=== PATIENT | male | born 1995 | race Caucasian/White ===

== ENCOUNTER 2016-12-01 21:34 | Emergency (ER) | payer SELFPAY ==
--- NOTE | ~2016-12-01 | CR63 ---
[facility]. [facility] A Service of [facility] & [facility] / [facility] RADIOLOGY TEXT RESULTS PATIENT: OMAR MARTIN LOCATION: SED : 95 UNIT #: [id number] AGE: [address]: Sally Corbin APRN SEX: M ORDER DR: [id number] [place] [id number] E MR#: [id number] Acc #: [id number] NAME: OMAR MARTIN : 1995 SEX: M STUDY DATE/TIME: 12/01/2016 23:52 UNIT: SED ROOM: STUDY DESCRIPTION: CR Chest 2 View Attending Physician: Sally Corbin A.P.R.N. Ordering Physician: Sally Corbin A.P.R.N. Primary Care Physician: No Primary Care Physician MEDICAL IMAGING REPORT This report is preliminary unless electronic signature is present. EXAM 2-view chest INDICATIONS Chest pain fatigue for 1 week. FINDINGS PA and lateral views of the chest without comparison. Heart and mediastinal contours normal. Lungs are clear. IMPRESSION No acute findings. Dictated by... Jone Davila M.D. THIS IS AN ELECTRONICALLY VERIFIED REPORT Jone Davila M.D. at 12/02/2016 11:10 PM RPGarrett/matty TD: 12/02/2016 05:02 JOB #: [id number] MEDICAL IMAGING REPORT Page 1 of 1
--- NOTE | ~2016-12-01 | EKG ---
PATIENT: OMAR MARTIN UNIT #: [id number] Ventricular Rate: 60 BPM Atrial Rate: 60 BPM P-R Interval: 134 ms QRS Duration: 94 ms Q-T Interval: 396 ms QTC Calculation(Bezet): 396 ms P [place]: 24 degrees Calculated R [place]: 33 degrees Calculated T [place]: 42 degrees Diagnosis Line: Normal sinus rhythm with sinus arrhythmia Diagnosis Line: Normal ECG Diagnosis Line: No previous ECGs available Diagnosis Line: Confirmed by TRAVIS MURDOCK MD ([id number]) on Diagnosis Line: 12/06/2016 8:50:22 AM INTERPRETING MD: COLLETTE AYERS
[2016-12-01] MEDS ORDERED: NO MEDICATIONS (21:55)
[2016-12-01 22:51] LABS: URINE SOURCE CLEAN CATCH
[2016-12-01 22:55] LABS: URINE APPEARANCE CLEAR; URINE BILIRUBIN NEG (NEG); URINE BLOOD NEG (NEG); URINE COLOR YELLOW; URINE GLUCOSE NEG (NORM); URINE KETONE NEG (NEG); URINE LEUKOCYTE ESTERASE NEG (NEG); URINE NITRATE NEG (NEG); URINE PROTEIN NEG (NEG); URINE UROBILINOGEN 0.2 MG/DL (NORM)
[2016-12-01 22:56] LABS: BASOPHIL% 0.5 % (0-2.5); EOSINOPHIL# 0.1 X10e3 (0-0.7); EOSINOPHIL% 1.1 % (0.0-7.0); HEMATOCRIT 47.1 % (38.0-50.0); HEMOGLOBIN 16.1 gm/dL (13.0-16.0); LYMPHOCYTE# 2.6 X10e3 (1.0-3.5); LYMPHOCYTE% 37.9 % (17.0-45.0); MEAN CELL VOLUME 89.9 FL (83-96); MEAN CORPUSCULAR HEMOGLOBIN 30.8 PG (28-34); MEAN CORPUSCULAR HGB CONC 34.3 g/dL (30-36); MONOCYTE# 0.4 X10e3 (0-1.0); MONOCYTE% 5.8 % (3.0-12.0); NEUTROPHIL# 3.7 X10e3 (1.5-7.1); NEUTROPHIL% 54.7 % (40-75); PLATELET COUNT 169 X10e3 (140-420); RED BLOOD COUNT 5.23 X10e (3.90-5.60); RED CELL DISTRIBUTION WIDTH 13.1 % (11.0-15.5); WHITE BLOOD COUNT 6.8 X10e3 (4.0-10.5)
[2016-12-01 23:00] LABS: DIFF IND NO; MICRO INDICATED? NO
[2016-12-01 23:04] LABS: INR 1.1; PROTHROMBIN TIME (PATIENT) 12.6 SECONDS (9.5-12.4)
[2016-12-01 23:05] LABS: AMPHETAMINE NEG (NEG); BARBITURATES NEG (NEG); BENZODIAZEPINES NEG (NEG); COCAINE NEG (NEG); MARIJUANA POS (NEG); OPIATES NEG (NEG); TRICYCLIC ANTIDEPRESSANTS NEG (NEG); U METHADONE NEG (NEG)
[2016-12-01 23:05] LABS: POC - CKMB 2.2 ng/mL (0.0-7.9); POC - TROPONIN <0.05 ng/mL (<=0.05)
[2016-12-01 23:16] LABS: ALBUMIN SERUM 4.7 g/dL (3.5-5.0); BILIRUBIN,TOTAL 0.5 mg/dL (0.2-2.0); BUN/CREATININE RATIO 7.77; CALCIUM SERUM 9.6 mg/dL (8.4-10.2); CREATININE SERUM 0.9 mg/dL (0.6-1.4); GLOM FILT RATE Estimated 121.7 mL/min (>60); POTASSIUM 3.4 mmol/L (3.5-5.1); PROTEIN TOTAL SERUM 7.8 g/dL (6.0-8.3)
== END 2016-12-02 00:56 | disposition home or self-care (01) ==
LOC: SED 21:34
PROVIDERS: Nurse Practitioner Family
DX: K21.9 Gastro-esophageal reflux disease without esophagitis (principal); F17.210 Nicotine dependence, cigarettes, uncomplicated
CPT/HCPCS: 36415; 71020; 80053; 80307; 81003; 82553; 84484; 85025; 85379; 85610; 85730; 93005; 99284

== ENCOUNTER 2017-02-09 16:07 | Emergency (ER) | payer SELFPAY ==
--- NOTE | ~2017-02-09 | CR150 ---
[facility]. [facility] A Service of [facility] & [facility] RADIOLOGY TEXT RESULTS PATIENT: OMAR MARTIN LOCATION: SED : 95 UNIT #: [id number] AGE: [address]: KELSIE CRESPO SEX: M ORDER DR: [id number] [place] [id number] E MR#: [id number] Acc #: [id number] NAME: OMAR MARTIN : 1995 SEX: M STUDY DATE/TIME: 02/09/2017 18:07 UNIT: SED ROOM: STUDY DESCRIPTION: CR Hip Min 2 Views Lt Attending Physician: Kelsie Crespo Ordering Physician: Kelsie Crespo Primary Care Physician: No Primary Care Physician MEDICAL IMAGING REPORT This report is preliminary unless electronic signature is present. EXAM Pelvis left hip 02/09/2017 HISTORY Pain 4 days duration rubbing pushing pain left hip worse with movement. FINDINGS AP radiograph of pelvis presented with frog-leg view left hip. No traumatic fracture or malalignment. Hip joints intact. Bilateral proximal femurs intact. Periarticular soft tissues unremarkable. Visualized bowel gas pattern normal. Dictated by... Raleigh Herrera M.D. THIS IS AN ELECTRONICALLY VERIFIED REPORT Raleigh Herrera M.D. at 02/10/2017 2:37 PM KASIE/matty TD: 02/10/2017 04:36 JOB #: [id number] MEDICAL IMAGING REPORT Page 1 of 1
[~2017-02-09 16:07] MED LIST: NO MEDICATIONS
== END 2017-02-09 19:29 | disposition home or self-care (01) ==
LOC: SED 16:07
DX: M54.32 Sciatica, left side (principal); F17.210 Nicotine dependence, cigarettes, uncomplicated
CPT/HCPCS: 73502; 99283